=== PATIENT | female | born 2000 | race Two or more races ===

== ENCOUNTER 2020-06-12 18:21 | Inpatient (IN) ==
[2020-06-12 18:48] LABS: Appearance Urine Clear (Clear); Bilirubin Urine Negative (Negative); Blood Urine Negative (Negative); Color Urine Yellow; Glucose Urine UA Negative (Negative); Ketones Urine Negative (Negative); Leukocyte Esterase Urine Negative (Negative); Nitrite Urine Negative (Negative); Protein Urine Negative (Negative); Specific Gravity Urine 1.007 (1.000-1.030); Urobilinogen Urine Negative (Negative); pH Urine 8.5 (4.5-7.5)
[2020-06-12 19:09] LABS: Basophils # (auto) 0.01 K/uL (0-0.2); Basophils % (auto) 0.1 %; Eosinophils # (auto) 0.12 K/uL (0-0.5); Eosinophils % (auto) 1.6 %; Hematocrit (blood only) 40.2 % (37-47); Hemoglobin 13.8 g/dL (12.0-16.0); Immature Granulocytes # (auto) 0.01 K/uL (0.00-0.02); Immature Granulocytes % (auto) 0.1 %; Lymphocytes % (auto) 39.3 %; Mean Corpuscular Hemoglobin 30.3 pg (25-34); Mean Corpuscular Hgb Conc 34.3 g/dL (32-36); Mean Corpuscular Volume 88.4 fL (80-100); Mean Platelet Volume 9.4 fL (7.4-10.4); Monocytes # (auto) 0.65 K/uL (0.11-0.59); Monocytes % (auto) 8.5 %; Neutrophils # (auto) 3.85 K/uL (1.4-6.5); Neutrophils % (auto) 50.4 %; Platelet Count 215 K/uL (130-400); RDW Coefficient of Variation 12.7 % (11.5-14.5); RDW Standard Deviation 40.5 fL (36.4-46.3); Red Blood Count 4.55 M/uL (4.2-5.4); White Blood Count 7.64 K/uL (4.8-10.8)
[2020-06-12 19:23] LABS: Amphetamines+Metham, Urine Neg (Neg); Barbiturates, Urine Neg (Neg); Benzodiazepine, Urine Neg (Neg); Cocaine, Urine Neg (Neg); MDMA (Ecstacy), Urine Neg (Neg); Methadone, Urine Neg (Neg); Opiate, Urine Neg (Neg); Phencyclidine, Urine Neg (Neg)
[2020-06-12 19:26] LABS: Alanine Aminotransferase 16 U/L (12-78); Aspartate Aminotransferase 11 U/L (15-37); BUN Creatinine Ratio 10.6 (10-20); Blood Urea Nitrogen 6 mg/dl (7-18); Calcium 8.9 mg/dl (8.5-10.1); Carbon Dioxide 27 mmol/L (21-32); Chloride 108 mmol/L (98-107); Creatinine Clr Calc Pharmacy 136.3 ml/min; Est GFR (African American) > 150.0; Est GFR (Non-African American) 134.9; Glucose 71 mg/dl (70-99); Potassium 3.8 mmol/L (3.5-5.1); Sodium 139 mmol/L (136-145)
[2020-06-12 19:35] LABS: Acetaminophen < 2 ug/ml (10-30); Salicylate < 1.7 mg/dl (2.8-20)
[2020-06-12 19:37] LABS: Albumin Globulin Ratio 0.9 (0.9-2); Alkaline Phosphatase 71 U/L (45-117); Bilirubin,Total 0.5 mg/dl (0.2-1); Globulin 4.5 gm/dl (2.5-4.0); Total Protein 8.5 gm/dl (6.4-8.2)
--- NOTE | 2020-06-12 21:02 | Emergency Department Note ---
History of Present Illness General Chief complaint: Mental Health Evaluation Stated complaint: MENTAL HEALTH EVAL Source: patient and RN notes reviewed Mode of arrival: ambulatory Limitations: no limitations History of Present Illness Provider complaint: Suicidal ideation Maximum Pain Intensity: 0 Presents emergency department with complaints of suicidal thoughts. She states she has been having "significant issues" with her family and her fianc's family lately. These issues have been ongoing for the last 6 years however the patient states she has been having increased depression and suicidal thoughts for the last several days. The patient had thoughts of overdosing on pills last night. She has had suicidal attempts 3 times in the past. She has never been seen by psychiatrist nor has she had inpatient care. She denies likelihood of as she has a Nexplanon implant. He substance abuse and states she does drink alcohol occasionally. 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 and A total of 10 systems reviewed and were otherwise negative Physical Exam Vital Signs Vital Signs - 24 hr 06/12/20 18:23 Temperature 36.9 C Temperature Source Oral Pulse Rate 82 Respiratory Rate 16 Respiratory Effort / Characteristics Non-Labored Respiratory Depth Normal Blood Pressure 123/82 Blood Pressure Mean 95 Pulse Oximetry 99 Sepsis Recent Fever Within 48 Hours No Sepsis New/Unexplained Change in Mental Status No Sepsis Action Taken by Nursing No Action Required Vital signs reviewed. General: Well-appearing 19-year-old female, in no significant distress. HEENT: No scleral icterus, PERRLA, neck supple. Atraumatic. Cardiovascular: Regular rate and rhythm, no extra sounds. Pulmonary: Clear to auscultation bilaterally, normal work of breathing. Abdomen: Soft, nontender, nondistended, positive bowel sounds. Musculoskeletal: Atraumatic, no peripheral edema. Neurologic: Patient awake alert and oriented x 3 Psych: Positive SI with plan, negative HI Skin: Warm, dry, no rash Course Administered Medications Acetaminophen (Acetaminophen 325 Mg Tab) 650 mg PO Q4H PRN PRN Reason: Headache or Minor Fever Stop: 07/12/20 22:17 Last Admin: 06/13/20 18:51 Dose: 650 mg Documented by: [id number] Medical Decision Making Differential Diagnosis Differential diagnosis: Etiologies such as psychiatric disorder, infection, hypoglycemia, electrolyte abnormalities, cardiac sources, intracerebral event, toxicological process, neurologic disorder, as well as others were entertained. Medical Records Attestation: I reviewed the patient's medical records. Home Medications Current Medication List: was personally reviewed by me Laboratory Data Attestation: I reviewed the patient's lab results. Result diagrams: 06/12/20 18:45 06/12/20 18:45 Lab Results 06/12/20 06/12/20 06/12/20 Range/Units 18:34 18:34 18:34 WBC (4.8-10.8) K/uL RBC (4.2-5.4) M/uL Hgb (12.0-16.0) g/dL Hct (37-47) % MCV (80-100) fL MCH (25-34) pg MCHC (32-36) g/dL RDW Std Deviation (36.4-46.3) fL RDW Coeff of Addi (11.5-14.5) % Plt Count (130-400) K/uL MPV (7.4-10.4) fL Immature Gran % (Auto) % Neut % (Auto) % Lymph % (Auto) % Barnes % (Auto) % Eos % (Auto) % Baso % (Auto) % Neut # (Auto) (1.4-6.5) K/uL Lymph # (Auto) (1.2-3.4) K/uL Barnes # (Auto) (0.11-0.59) K/uL Eos # (Auto) (0-0.5) K/uL Baso # (Auto) (0-0.2) K/uL Immature Gran # (Auto) (0.00-0.02) K/uL Sodium (136-145) mmol/L Potassium (3.5-5.1) mmol/L Chloride (98-107) mmol/L Carbon Dioxide (21-32) mmol/L Anion Gap (3-11) BUN (7-18) mg/dl Creatinine (0.6-1.2) mg/dl Est Cr Clr Drug Dosing ml/min Est GFR ( Amer) Est GFR (Non-Af Amer) BUN/Creatinine Ratio (10-20) Glucose (70-99) mg/dl Calcium (8.5-10.1) mg/dl Total Bilirubin (0.2-1) mg/dl AST (15-37) U/L ALT (12-78) U/L Alkaline Phosphatase (45-117) U/L Total Protein (6.4-8.2) gm/dl Albumin (3.4-5.0) gm/dl Globulin (2.5-4.0) gm/dl Albumin/Globulin Ratio (0.9-2) TSH (0.300-4.500) uIu/ml Urine Color Yellow Urine Appearance Clear (Clear) Urine pH 8.5 H (4.5-7.5) Ur Specific [place] 1.007 (1.000-1.030) Urine Protein Negative (Negative) Urine Glucose (UA) Negative (Negative) Urine Ketones Negative (Negative) Urine Blood Negative (Negative) Urine Nitrite Negative (Negative) Urine Bilirubin Negative (Negative) Urine Urobilinogen Negative (Negative) Ur Leukocyte Esterase Negative (Negative) POC Ur Test NEG (NEG) Salicylates (2.8-20) mg/dl Urine Opiates Screen Neg (Neg) Ur Methadone, Qual Neg (Neg) Acetaminophen (10-30) ug/ml Urine Barbiturates Neg (Neg) Ur Phencyclidine (PCP) Neg (Neg) U Amphetamin/Meth Scrn Neg (Neg) MDMA (Ecstasy) Screen Neg (Neg) U Benzodiazepines Scrn Neg (Neg) Ur Cocaine Metabolite Neg (Neg) U Marijuana (THC) Screen Neg (Neg) Ethyl Alcohol mg/dL (0-3) mg/dl COVID-19 Eval Order SARS-CoV-2, RNA, NAAT (NEGATIVE) 06/12/20 06/12/20 06/12/20 Range/Units 18:45 18:45 18:45 WBC 7.64 (4.8-10.8) K/uL RBC 4.55 (4.2-5.4) M/uL Hgb 13.8 (12.0-16.0) g/dL Hct 40.2 (37-47) % MCV 88.4 (80-100) fL MCH 30.3 (25-34) pg MCHC 34.3 (32-36) g/dL RDW Std Deviation 40.5 (36.4-46.3) fL RDW Coeff of Addi 12.7 (11.5-14.5) % Plt Count 215 (130-400) K/uL MPV 9.4 (7.4-10.4) fL Immature Gran % (Auto) 0.1 % Neut % (Auto) 50.4 % Lymph % (Auto) 39.3 % Barnes % (Auto) 8.5 % Eos % (Auto) 1.6 % Baso % (Auto) 0.1 % Neut # (Auto) 3.85 (1.4-6.5) K/uL Lymph # (Auto) 3.00 (1.2-3.4) K/uL Barnes # (Auto) 0.65 H (0.11-0.59) K/uL Eos # (Auto) 0.12 (0-0.5) K/uL Baso # (Auto) 0.01 (0-0.2) K/uL Immature Gran # (Auto) 0.01 (0.00-0.02) K/uL Sodium 139 (136-145) mmol/L Potassium 3.8 (3.5-5.1) mmol/L Chloride 108 H (98-107) mmol/L Carbon Dioxide 27 (21-32) mmol/L Anion Gap 4.0 (3-11) BUN 6 L (7-18) mg/dl Creatinine 0.54 L (0.6-1.2) mg/dl Est Cr Clr Drug Dosing 136.3 ml/min Est GFR ( Amer) > 150.0 Est GFR (Non-Af Amer) 134.9 BUN/Creatinine Ratio 10.6 (10-20) Glucose 71 (70-99) mg/dl Calcium 8.9 (8.5-10.1) mg/dl Total Bilirubin 0.5 (0.2-1) mg/dl AST 11 L (15-37) U/L ALT 16 (12-78) U/L Alkaline Phosphatase 71 (45-117) U/L Total Protein 8.5 H (6.4-8.2) gm/dl Albumin 4.0 (3.4-5.0) gm/dl Globulin 4.5 H (2.5-4.0) gm/dl Albumin/Globulin Ratio 0.9 (0.9-2) TSH 1.100 (0.300-4.500) uIu/ml Urine Color Urine Appearance (Clear) Urine pH (4.5-7.5) Ur Specific [place] (1.000-1.030) Urine Protein (Negative) Urine Glucose (UA) (Negative) Urine Ketones (Negative) Urine Blood (Negative) Urine Nitrite (Negative) Urine Bilirubin (Negative) Urine Urobilinogen (Negative) Ur Leukocyte Esterase (Negative) POC Ur Test (NEG) Salicylates < 1.7 L (2.8-20) mg/dl Urine Opiates Screen (Neg) Ur Methadone, Qual (Neg) Acetaminophen < 2 L (10-30) ug/ml Urine Barbiturates (Neg) Ur Phencyclidine (PCP) (Neg) U Amphetamin/Meth Scrn (Neg) MDMA (Ecstasy) Screen (Neg) U Benzodiazepines Scrn (Neg) Ur Cocaine Metabolite (Neg) U Marijuana (THC) Screen (Neg) Ethyl Alcohol mg/dL (0-3) mg/dl COVID-19 Eval Order SARS-CoV-2, RNA, NAAT (NEGATIVE) 06/12/20 06/12/20 06/12/20 Range/Units 18:45 20:50 20:50 WBC (4.8-10.8) K/uL RBC (4.2-5.4) M/uL Hgb (12.0-16.0) g/dL Hct (37-47) % MCV (80-100) fL MCH (25-34) pg MCHC (32-36) g/dL RDW Std Deviation (36.4-46.3) fL RDW Coeff of Addi (11.5-14.5) % Plt Count (130-400) K/uL MPV (7.4-10.4) fL Immature Gran % (Auto) % Neut % (Auto) % Lymph % (Auto) % Barnes % (Auto) % Eos % (Auto) % Baso % (Auto) % Neut # (Auto) (1.4-6.5) K/uL Lymph # (Auto) (1.2-3.4) K/uL Barnes # (Auto) (0.11-0.59) K/uL Eos # (Auto) (0-0.5) K/uL Baso # (Auto) (0-0.2) K/uL Immature Gran # (Auto) (0.00-0.02) K/uL Sodium (136-145) mmol/L Potassium (3.5-5.1) mmol/L Chloride (98-107) mmol/L Carbon Dioxide (21-32) mmol/L Anion Gap (3-11) BUN (7-18) mg/dl Creatinine (0.6-1.2) mg/dl Est Cr Clr Drug Dosing ml/min Est GFR ( Amer) Est GFR (Non-Af Amer) BUN/Creatinine Ratio (10-20) Glucose (70-99) mg/dl Calcium (8.5-10.1) mg/dl Total Bilirubin (0.2-1) mg/dl AST (15-37) U/L ALT (12-78) U/L Alkaline Phosphatase (45-117) U/L Total Protein (6.4-8.2) gm/dl Albumin (3.4-5.0) gm/dl Globulin (2.5-4.0) gm/dl Albumin/Globulin Ratio (0.9-2) TSH (0.300-4.500) uIu/ml Urine Color Urine Appearance (Clear) Urine pH (4.5-7.5) Ur Specific [place] (1.000-1.030) Urine Protein (Negative) Urine Glucose (UA) (Negative) Urine Ketones (Negative) Urine Blood (Negative) Urine Nitrite (Negative) Urine Bilirubin (Negative) Urine Urobilinogen (Negative) Ur Leukocyte Esterase (Negative) POC Ur Test (NEG) Salicylates (2.8-20) mg/dl Urine Opiates Screen (Neg) Ur Methadone, Qual (Neg) Acetaminophen (10-30) ug/ml Urine Barbiturates (Neg) Ur Phencyclidine (PCP) (Neg) U Amphetamin/Meth Scrn (Neg) MDMA (Ecstasy) Screen (Neg) U Benzodiazepines Scrn (Neg) Ur Cocaine Metabolite (Neg) U Marijuana (THC) Screen (Neg) Ethyl Alcohol mg/dL < 3.0 (0-3) mg/dl COVID-19 Eval Order Covid19 [facility] SARS-CoV-2, RNA, NAAT NEGATIVE (NEGATIVE) Imaging Data Attestation: I personally reviewed and interpreted this imaging study as follows: Prescription Drug Monitoring [place] Drug Monitoring Program reviewed and no issues identified Blood Pressure Blood Pressure Findings: Normal blood pressure Blood Pressure Disposition: did not require urgent referral MDM Narrative This patient was evaluated and appeared to be in no significant distress. Patient was medically cleared and referred to the mental health case folder for psychiatric assessment. Patient is felt to warrant inpatient psychiatric care due to suicidal ideation with plans to overdose on pills. She has had 3 prior suicide attempts. Patient was referred to [facility] and accepted on a voluntary basis. Impression & Plan Suicidal ideations, Depression Discharge Plan Visit Data Chief Complaint: Mental Health Evaluation Stated Complaint: MENTAL HEALTH EVAL ED Provider: Roxanne Medrano Discharge Problem: Suicidal ideations, Depression Patient Disposition: Admitted As Inpatient Discharge Instructions Interventions: ED Discharge Assessment Last Done: 06/12/20 23:40 Discharge Problem: Depression Qualifiers: Depression Type: unspecified Qualified Code(s): F32.9 - Major depressive disorder, single episode, unspecified
[2020-06-12] MEDS ORDERED: SODIUM CHLORIDE 0.65% NA SOLN 45 ML (OCEAN) PRN (22:18)
[2020-06-12] MEDS ORDERED: MAGNESIUM HYDROXIDE SUSP 30 ML UDC PO PRN (22:18)
[2020-06-12] MEDS ORDERED: hydrOXYzine HCl 25 MG TAB PO PRN ×2 (22:18)
[2020-06-12] MEDS ORDERED: BISMUTH SUBSALICYLATE LIQD 236 ML PO PRN (22:18)
[2020-06-12] MEDS ORDERED: ALUMINUM/MAGNESIUM SUSP 30 ML UDC PO PRN (22:18)
[2020-06-12] MEDS ORDERED: ACETAMINOPHEN 325 MG TAB PO PRN (22:18)
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
--- NOTE | 2020-06-14 09:12 | Psychiatric Progress Note ---
Date of Service June 14, 2020 Impression / Recommendations Impression 19-year-old female admitted voluntarily after presenting to the ED with worsening mood and anxiety and recent onset of suicidal ideation in context of multiple relationship stressors. A trial of an antidepressant has been discussed, but for now she wants to avoid medications to continue with therapy at [facility]. She has a family meeting with her fited, whom she lives with, today, and we will coordinate with [employer] through [facility]. Inpatient psychiatric hospitalization is medically necessary at this time due to high risk of recurrence of SI and risk of suicide if discharged prematurely. (1) Suicidal ideations: 06/13 - Admitted to a locked inpatient behavioral health unit, on q15 minute safety checks - Encourage medication initiation/adjustments as indicated - Encourage participation in group and recreational therapies - Gather collateral information from outpatient providers - Suggest family meeting to involve outpatient supports in safety planning - Arrange appropriate aftercare 06/14 -Patient feels safe here, will address stressors in her family meeting with her fited today. Encouraged her to work on her discharge safety plan and share that with her fited. (2) Depression: 06/13 - Pt provided with education on diagnosis. Suggested initiation of an SSRI to target depressive symptoms. Due to verbalized concerns about risk of weight gain, we specifically discussed trial of fluoxetine. Pt provided with handouts to review, as she is not yet wanting to commit to initiating medication - Will encourage attendance of group programming and development of healthy and effective coping skills - Encourage family meeting with outpatient supports - likely fijanet - Engage with [facility] - Refer for appropriate aftercare services 06/14 -again reviewed treatment recommendations including therapy and the option of antidepressant medication. The patient asked multiple appropriate questions, again reviewed the side effects commonly seen with fluoxetine, attempted to reassure that these are generally well-tolerated medications, and that adjustments can be made if she does experience side effects, however she would like to avoid medications and try to manage symptoms with therapy alone for now, but agreed to reconsider a trial of an SSRI if symptoms are not improving. (3) Generalized anxiety disorder: 06/13 - Same as above, patient is interested in reviewing additional information on fluoxetine before starting the medication - Encourage development of healthy and effective coping strategies Risk Factors Assessment Male: No : No Do You Have Access To A Gun?: No Health Problems: No Mental Health Diagnoses: Yes Substance Use Disorders: No Previous Attempt: Yes Previous Psychiatric Hospitalization: No Smoker: No Protective Factors Assessment Restorationist Beliefs: No : No Responsible for Young Children: No Employed: No Stable Relationships: Yes Supportive Family: No Interval History Identifying Information PRESTON SONI is a 19-year-old F who currently lives in [place] with her fiance. Pt has a history of diagnosis for adjustment disorder and had started seeing a counselor this semester, and was admitted on 06/12/20 22:19 on a 201 voluntary commitment for worsening depression and anxiety and suicidal ideation with plan to overdose on medications. Chief Complaint "Didn't sleep real well, had nightmares". Review of Systems Sleep Information Total Hours of Sleep: 5.5 Sleep Comments: pt on q-15 minute checks Meal Information Percent Meal Consumed - Breakfast: 70 Percent Meal Consumed - Lunch: 75 Percent Meal Consumed - Dinner: 100 Subjective Subjective Patient was seen & assessed and interval progress reviewed. Staff report she attended all groups with good participation and insight, was able to offer support to others, and spoke about feeling rejected by her family when she told them she was atheist and would not practice Mandaeism. She also discussed that she is engaged to a white male, and her parents are not aware of that. She has a family meeting with the manager social responsibility and her fianc this afternoon. On my assessment, she reports mood is "ok," was feeling better on the unit yesterday as she got "comfortable with my environment," but worsened in the evening when she talked to her fiance on the phone and they got into an argument about his family. She feels guilty about it now, as he stood up for her when other family members "disrespected me." She feels his mother should apologize to her, while he thinks the patient should just not talk to his mother, and then see if she changes her behavior. She feels she is easily angered recently ad loses her temper quickly, which she'd like to work on. She is able to identify that her main stressor is her own family, and she can take her frustrations out on his family. She denies SI and feels safe here. She read the patient hand out about fluoxetine and doesn't want to take medication as "there's so many side effects." Again reviewed details about antidepressant medication, and she would like to work on her issues in therapy. She has several goals for her meeting with her fiance today. Physical Exam Psychiatric Orientation: alert and cooperative Apperance: appropriately dressed, appropriately groomed and appeared stated age head shaved, multiple piercings, dressed in leggings and a sweatshirt Eye Contact: + fair eye contact Motor Behavior: steady gait and station and no abnormal motor movements Speech: normal rate/rhythm/volume of speech Affect: euthymic affect and mood congruent with affect "ok." Thought Process: goal directed thought process and linear/logical thought process Thought Content: reality based without delusions Suicidal Thoughts: denies suicidal thoughts Homicidal Thoughts: denies homicidal thoughts Hallucinations: no auditory hallucinations Cognition: recent memory grossly intact, attention grossly intact and language grossly intact Estimated Intelligence: consistent with education level Insight: + fair insight Judgement: + fair judgement Vital Signs (Past 24 Hours) Last Vital Signs Temp 36.8 C 06/14/20 06:44 Pulse 95 H 06/14/20 06:44 Resp 16 06/14/20 06:44 BP 97/59 L 06/14/20 06:44 Pulse Ox 100 06/13/20 00:13 Results & Data ([facility]) Current Inpatient Medications Current Inpatient Medications: Current Inpatient Medications Acetaminophen (Acetaminophen 325 Mg Tab) 650 mg PO Q4H PRN PRN Reason: Headache or Minor Fever Stop: 07/12/20 22:17 Last Admin: 06/13/20 18:51 Dose: 650 mg Documented by: Al Hydrox/Mg Hydrox/Simethicone (Aluminum/Magnesium Susp 30 Ml Udc) 30 ml PO Q4H PRN PRN Reason: GI Upset Stop: 07/12/20 22:17 Bismuth Subsalicylate (Bismuth Subsalicylate Liqd 236 Ml) 15 ml PO PRN PRN PRN Reason: Loose Stool Stop: 07/12/20 22:17 Hydroxyzine HCl (Hydroxyzine Hcl 25 Mg Tab) 50 mg PO HSZ PRN PRN Reason: Insomnia Stop: 07/12/20 22:17 Hydroxyzine HCl (Hydroxyzine Hcl 25 Mg Tab) 25 mg PO Q4H PRN PRN Reason: Anxiety Stop: 07/12/20 22:17 Magnesium Hydroxide (Magnesium Hydroxide Susp 30 Ml Udc) 30 ml PO DAILY PRN PRN Reason: Constipation Stop: 07/12/20 22:17 Sodium Chloride (Sodium Chloride 0.65% Na Soln 45 Ml ([place])) 1 - 2 sprays NA PRN PRN PRN Reason: Nasal Dryness/Congestion Stop: 07/12/20 22:17 Mental Health & Subst Abuse Tx Therapist Name of Therapist: Cezar Geronimo @ [facility] Date of Therapist Appointment: 06/18/20 (1) Depression Depression Type: unspecified Qualified Code(s): F32.9 - Major depressive disorder, single episode, unspecified
[2020-06-15] MEDS ORDERED: MELATONIN 3 MG TAB PO PRN (10:59)
--- NOTE | 2020-06-15 11:06 | Psychiatric Progress Note ---
Date of Service June 15, 2020 Impression / Recommendations Impression 19-year-old female admitted voluntarily after presenting to the ED with worsening mood and anxiety and recent onset of suicidal ideation in context of multiple relationship stressors. A trial of an antidepressant has been discussed, and patient initially reported she wants to avoid medications. After a few days of education on SSRIs and a support meeting with her fiance, patient has decided to pursue a trial of fluoxetine. We were informed medications will be managed by [facility] and patient will continue with therapy at [facility] as well. Care has also been coordinated with [employer] through [facility]. Inpatient psychiatric hospitalization is medically necessary at this time due to high risk of recurrence of SI and risk of suicide if discharged prematurely. (1) Suicidal ideations: 06/13 - Admitted to a locked inpatient behavioral health unit, on q15 minute safety checks - Encourage medication initiation/adjustments as indicated - Encourage participation in group and recreational therapies - Gather collateral information from outpatient providers - Suggest family meeting to involve outpatient supports in safety planning - Arrange appropriate aftercare 06/14 -Patient feels safe here, will address stressors in her family meeting with her fianc today. Encouraged her to work on her discharge safety plan and share that with her fianc. 06/15 - Pt denies SI today, but admits to increased anxiety related to nightmares last evening - Continue to encourage participation in group programming - Safety plan discussed with fiance during support meeting yesterday (2) Depression: 06/13 - Pt provided with education on diagnosis. Suggested initiation of an SSRI to target depressive symptoms. Due to verbalized concerns about risk of weight gain, we specifically discussed trial of fluoxetine. Pt provided with handouts to review, as she is not yet wanting to commit to initiating medication - Will encourage attendance of group programming and development of healthy and effective coping skills - Encourage family meeting with outpatient supports - likely fiance - Engage with [facility] - Refer for appropriate aftercare services 06/14 -again reviewed treatment recommendations including therapy and the option of antidepressant medication. The patient asked multiple appropriate questions, again reviewed the side effects commonly seen with fluoxetine, attempted to reassure that these are generally well-tolerated medications, and that adjustments can be made if she does experience side effects, however she would like to avoid medications and try to manage symptoms with therapy alone for now, but agreed to reconsider a trial of an SSRI if symptoms are not improving. 06/15 - Pt appears to be benefitting from treatment - admits family meeting with fijanet yesterday was stressful, but necessary. - Pt reports she is now willing to initiate fluoxetine, based on discussions with staff and conversation during the family meeting. Pt agreeable with initiating 20mg of fluoxetine today, and continuing scheduled dose each morning. Risks, benefits, and potential side effects were reviewed again, specifically including Black Box Warning regarding potential for increased suicidality in children and adolescents. - Pt has been in contact with [employer] regarding missed schooling. - Pt will continue to be seen at [facility], with reports she will also be able to receive medication management there as well. We did discuss sending prescriptions to [facility] pharmacy, as fluoxetine is on the $4/$10 list. (3) Generalized anxiety disorder: 06/13 - Same as above, patient is interested in reviewing additional information on fluoxetine before starting the medication - Encourage development of healthy and effective coping strategies 06/15 - Pt agreed to initiation of fluoxetine as discussed above - Reviewed coping strategies and ways to handle Risk Factors Assessment Male: No : No Do You Have Access To A Gun?: No Health Problems: No Mental Health Diagnoses: Yes Substance Use Disorders: No Previous Attempt: Yes Previous Psychiatric Hospitalization: No Smoker: No Protective Factors Assessment Taoist Beliefs: No : No Responsible for Young Children: No Employed: No Stable Relationships: Yes Supportive Family: No Interval History Identifying Information PRESTON SONI is a 19-year-old F who currently lives in [place] with her fijanet. Pt has a history of diagnosis for adjustment disorder and had started seeing a counselor this semester, and was admitted on 06/12/20 22:19 on a 201 voluntary commitment for worsening depression and anxiety and suicidal ideation with plan to overdose on medications. Chief Complaint "I didn't sleep well last night due to nightmares." Review of Systems Notes Constitutional: reports poor sleep last evening, several nightmares Cardiovascular: denied Respiratory: denied Gastrointestinal: denied Neurological: denied Psychiatric: denies symptoms other than stated above Total of at least 10 systems reviewed, pertinent positives as above and in HPI. Sleep Information Total Hours of Sleep: 6.5 Sleep Comments: pt on q-15 minute checks Meal Information Percent Meal Consumed - Breakfast: 100 Percent Meal Consumed - Lunch: 100 Percent Meal Consumed - Dinner: 100 Subjective Subjective Patient was seen & assessed and interval progress reviewed with treatment team. Staff report the patient has been participating in group programming and appears to be benefitting from treatment. She participated in a support meeting with her fiance yesterday, which covered aspects of patient's distorted thinking and ways to better cope with outpatient stressors. Pt was seen today to assess progress since admission. Pt states "I didn't sleep well last night due to nightmares." Pt reports her dreams last evening were vivid, and the theme was reflecting a very stressful day she had as child when she had a dream her father had and she was not able to get a hold of him during the day to make sure he was ok. Pt admits "I don't normally dream unless there's a lot of stress going on." Pt states that although her treatment has been beneficial, it has also been a bit overwhelming. In speaking of her support meeting yesterday, the patient admits "the things I was told were pretty blunt, but important for me to hear." Pt states she was able to reflect on her belief that her perception is "what is right." We continued conversation about cognitive distortions and patient was directed to her work-book and counselors to follow-up on this topic. Pt also shares the thought that she needs "anger management." She admits that "insignificant things" have been "making me really angry." We did discuss that anxiety and depression can lead to this, but also discussed ways to work through this. Pt admits the biggest concern is how she and her fiance communicate anger. She admits that she tends to demand immediate conversation and resolution, while her fiance is more avoidant. We discussed ways to work toward a middle-ground when it comes to arguments. Pt was receptive to the conversation and suggestions and is hopeful to speak with her fiance about implementing some of them. Pt reports that she is willing for medications, after some consideration. She was again provided with education of fluoxetine and was agreeable with beginning the medication today. Pt was agreeable with continuing inpatient treatment in order to start the medication. Pt denies SI, but states she is hoping to continue to develop some coping skills in some additional groups. Pt denied other needs or concerns at this time. Physical Exam Psychiatric Orientation: alert, oriented x 3 and cooperative Apperance: appropriately dressed, appropriately groomed and appeared stated age Eye Contact: good eye contact Motor Behavior: steady gait and station and no abnormal motor movements Speech: normal rate/rhythm/volume of speech Affect: euthymic affect and mood congruent with affect Mood: + anxious mood (related to nightmares last evening) Thought Process: goal directed thought process and clear/coherent thought process Thought Content: + cognitive distortions (reporting better ability to recognize); no hopelessness and no worthlessness Suicidal Thoughts: denies suicidal thoughts Homicidal Thoughts: denies homicidal thoughts Hallucinations: no auditory hallucinations and no visual hallucinations Cognition: recent memory grossly intact, attention grossly intact and language grossly intact Estimated Intelligence: consistent with education level Insight: + fair insight Judgement: + fair judgement Vital Signs (Past 24 Hours) Last Vital Signs Temp 36.6 C 06/15/20 06:32 Pulse 76 06/15/20 06:32 Resp 17 06/15/20 06:32 BP 106/64 06/15/20 06:33 Pulse Ox 100 06/13/20 00:13 Results & Data ([facility]) Current Inpatient Medications Current Inpatient Medications: Current Inpatient Medications Acetaminophen (Acetaminophen 325 Mg Tab) 650 mg PO Q4H PRN PRN Reason: Headache or Minor Fever Stop: 07/12/20 22:17 Last Admin: 06/13/20 18:51 Dose: 650 mg Documented by: Al Hydrox/Mg Hydrox/Simethicone (Aluminum/Magnesium Susp 30 Ml Udc) 30 ml PO Q4H PRN PRN Reason: GI Upset Stop: 07/12/20 22:17 Bismuth Subsalicylate (Bismuth Subsalicylate Liqd 236 Ml) 15 ml PO PRN PRN PRN Reason: Loose Stool Stop: 07/12/20 22:17 Fluoxetine HCl (Fluoxetine Hcl 20 Mg Cap) 20 mg PO QAM ELLI Stop: 07/15/20 10:59 Hydroxyzine HCl (Hydroxyzine Hcl 25 Mg Tab) 50 mg PO HSZ PRN PRN Reason: Insomnia Stop: 07/12/20 22:17 Hydroxyzine HCl (Hydroxyzine Hcl 25 Mg Tab) 25 mg PO Q4H PRN PRN Reason: Anxiety Stop: 07/12/20 22:17 Magnesium Hydroxide (Magnesium Hydroxide Susp 30 Ml Udc) 30 ml PO DAILY PRN PRN Reason: Constipation Stop: 07/12/20 22:17 Melatonin (Melatonin 3 Mg Tab) 6 mg PO HS PRN PRN Reason: Sleep Stop: 07/15/20 10:58 Sodium Chloride (Sodium Chloride 0.65% Na Soln 45 Ml ([place])) 1 - 2 sprays NA PRN PRN PRN Reason: Nasal Dryness/Congestion Stop: 07/12/20 22:17 Mental Health & Subst Abuse Tx Therapist Name of Therapist: Cezar Juanpablo @ [facility] Date of Therapist Appointment: 06/20/20 Time of Therapist Appointment: 1pm Marker Machine Name of Marker Machine: [facility] Phone Number for Marker Machine: [phone] Date of Appointment with Marker Machine: 06/18/20 Time of Appointment with Marker Machine: 2pm Case Management Appointment Comment: Megan will call you Post Discharge Appointments Primary Care Physician Name Of Family Doctor: [facility] Primary Care Provider Appointment Comment: As needed, [facility] [place] (1) Depression Depression Type: unspecified Qualified Code(s): F32.9 - Major depressive disorder, single episode, unspecified
[2020-06-15] MEDS: FLUoxetine HCL 20 MG CAP PO SCH (13:29)
[2020-06-16] MEDS: FLUoxetine HCL 20 MG CAP PO SCH (09:20)
--- NOTE | 2020-06-16 11:21 | Discharge Summary ---
Date of Service June 16, 2020 History of Present Illness per admitting provider: Ac Pierson is a 19-year-old female admitted voluntarily for inpatient psychiatric treatment on 06/12/2020 after presenting to the ED with worsening depression and anxiety, with episodes of suicidal ideation with plan to overdose on medications. Pt states she has a history of 3 suicide attempts by overdose, the most recent being in 2017. She had been expressing increased concern to her therapist through [facility] and a safety plan was developed. Although the safety plan has been successful at preventing any self- harm attempts, the patient no longer feels she is able to contract for safety outside of the hospital setting. Pt reports she has noticed the effects her mood and suicidal ideaiton have been having on her fiance, and wanted to get treatment to help them both. Pt admits to significant situational stressors - primarily discord within her family. Pt states her family moved to the [facility] from [place] ~6 years ago, with her parents shortly after. Pt states both parents have si nce re- and are living [place] the [place]. Pt states she often feels she is still expected to be the "mother-figure" for her 4 younger sisters, despite patient also attempting to distance herself from the stress of the family interactions. Pt reports having felt very close to her fiance's family, but states this changed recently when the fiance's sister moved back home. Pt describes the relationship as saying "It's like if your feeling dizzy, you look at a specific point on the wall to focus in on. That's how his family was for me, but now I feel like that's shaking too." In addition to the above concerns, the patient states she is also now struggling academically, which has been difficult. Pt reports depressive symptoms of low mood, anhedonia, poor concentration and memory concerns, reduced appetite, poor sleep, hopelessness, and episodes of suicidal ideation. She also admits to numerous symptoms consistent with generalized anxiety disorder. Pt states she has difficulty expressing her feelings, as her "culture is not one for expressing mental health." She states that her father had not taken her suicide attempts seriously, and is responding similarly to the patient's sister who has recently been verbalizing SI as well. Pt is open to discussing antidepressant medications, but is not yet sure that she will be willing to start one. She denies present SI, but is concerned as she felt "like a monster was controlling my body" the day prior to admission, and is worried she may not be able to prevent herself from acting on suicidal thoughts should they recur. Physical Exam Mental Examination See admission H&P and DOD assessment. Vital Signs (Past 24 Hours) Last Vital Signs Temp 36.7 C 06/16/20 07:48 Pulse 72 06/16/20 07:48 Resp 17 06/16/20 07:48 BP 92/48 L 06/16/20 07:48 Pulse Ox 100 06/16/20 07:48 Principal Diagnosis unspecified depressive disorder Psychiatric Data see daily stay summary. Patient's safety was maintained, started on Prozac 06/15/2020. Able to verbalize safety plan and is stable for discharge to outpatient level of care on 06/16. Has f/u with [facility]. Meds sent to [facility] pharmacy as paying out of pocket. Day of Discharge Assessment alert, cooperative, normal speech, thoughts organized. She consistently denies SI/HI/cummins. Her mood is "improved" and her affect is broad. She is expressing good insight into her ongoing need for treatment. Transition of Care Transition Of Care Record: was reviewed with the patient Advance Directives Advance Directives Information Provided: Yes Advance Directives: No Mental Health Advance Directive: No Advance Directives on File: No Living Will: No Power of Quality Rn: No Advance Directives Reason:: Declines as Mental Health Visit. Risk Factors Assessment Male: No : No Do You Have Access To A Gun?: No Health Problems: No Mental Health Diagnoses: Yes Substance Use Disorders: No Previous Attempt: Yes Previous Psychiatric Hospitalization: No Smoker: No Protective Factors Assessment Hindu Beliefs: No : No Responsible for Young Children: No Employed: No Stable Relationships: Yes Supportive Family: No Tobacco Cessation at Discharge Tobacco Cessation Medication Prescribed at Discharge: Not Applicable/Non-Smoker Total Time Total Time Spent: Greater Than 30 Minutes Discharge Data Lab Results 06/12/20 06/12/20 06/12/20 18:34 18:34 18:34 WBC RBC Hgb Hct MCV MCH MCHC RDW Std Deviation RDW Coeff of Addi Plt Count MPV Immature Gran % (Auto) Neut % (Auto) Lymph % (Auto) Cata[place]oula % (Auto) Eos % (Auto) Baso % (Auto) Neut # (Auto) Lymph # (Auto) Cata[place]oula # (Auto) Eos # (Auto) Baso # (Auto) Immature Gran # (Auto) Sodium Potassium Chloride Carbon Dioxide Anion Gap BUN Creatinine Est Cr Clr Drug Dosing Est GFR ( Amer) Est GFR (Non-Af Amer) BUN/Creatinine Ratio Glucose Calcium Total Bilirubin AST ALT Alkaline Phosphatase Total Protein Albumin Globulin Albumin/Globulin Ratio TSH Urine Color Yellow Urine Appearance Clear Urine pH 8.5 H Ur Specific [place] 1.007 Urine Protein Negative Urine Glucose (UA) Negative Urine Ketones Negative Urine Blood Negative Urine Nitrite Negative Urine Bilirubin Negative Urine Urobilinogen Negative Ur Leukocyte Esterase Negative POC Ur Test NEG Salicylates Urine Opiates Screen Neg Ur Methadone, Qual Neg Acetaminophen Urine Barbiturates Neg Ur Phencyclidine (PCP) Neg U Amphetamin/Meth Scrn Neg MDMA (Ecstasy) Screen Neg U Benzodiazepines Scrn Neg Ur Cocaine Metabolite Neg U Marijuana (THC) Screen Neg Ethyl Alcohol mg/dL COVID-19 Eval Order SARS-CoV-2, RNA, NAAT 06/12/20 06/12/20 06/12/20 18:45 18:45 18:45 WBC 7.64 RBC 4.55 Hgb 13.8 Hct 40.2 MCV 88.4 MCH 30.3 MCHC 34.3 RDW Std Deviation 40.5 RDW Coeff of Addi 12.7 Plt Count 215 MPV 9.4 Immature Gran % (Auto) 0.1 Neut % (Auto) 50.4 Lymph % (Auto) 39.3 [place]oula % (Auto) 8.5 Eos % (Auto) 1.6 Baso % (Auto) 0.1 Neut # (Auto) 3.85 Lymph # (Auto) 3.00 [place]oula # (Auto) 0.65 H Eos # (Auto) 0.12 Baso # (Auto) 0.01 Immature Gran # (Auto) 0.01 Sodium 139 Potassium 3.8 Chloride 108 H Carbon Dioxide 27 Anion Gap 4.0 BUN 6 L Creatinine 0.54 L Est Cr Clr Drug Dosing 136.3 Est GFR ( Amer) > 150.0 Est GFR (Non-Af Amer) 134.9 BUN/Creatinine Ratio 10.6 Glucose 71 Calcium 8.9 Total Bilirubin 0.5 AST 11 L ALT 16 Alkaline Phosphatase 71 Total Protein 8.5 H Albumin 4.0 Globulin 4.5 H Albumin/Globulin Ratio 0.9 TSH 1.100 Urine Color Urine Appearance Urine pH Ur Specific [place] Urine Protein Urine Glucose (UA) Urine Ketones Urine Blood Urine Nitrite Urine Bilirubin Urine Urobilinogen Ur Leukocyte Esterase POC Ur Test Salicylates < 1.7 L Urine Opiates Screen Ur Methadone, Qual Acetaminophen < 2 L Urine Barbiturates Ur Phencyclidine (PCP) U Amphetamin/Meth Scrn MDMA (Ecstasy) Screen U Benzodiazepines Scrn Ur Cocaine Metabolite U Marijuana (THC) Screen Ethyl Alcohol mg/dL COVID-19 Eval Order SARS-CoV-2, RNA, NAAT 06/12/20 06/12/20 06/12/20 18:45 20:50 20:50 WBC RBC Hgb Hct MCV MCH MCHC RDW Std Deviation RDW Coeff of Addi Plt Count MPV Immature Gran % (Auto) Neut % (Auto) Lymph % (Auto) [place]oula % (Auto) Eos % (Auto) Baso % (Auto) Neut # (Auto) Lymph # (Auto) [place]oula # (Auto) Eos # (Auto) Baso # (Auto) Immature Gran # (Auto) Sodium Potassium Chloride Carbon Dioxide Anion Gap BUN Creatinine Est Cr Clr Drug Dosing Est GFR ( Amer) Est GFR (Non-Af Amer) BUN/Creatinine Ratio Glucose Calcium Total Bilirubin AST ALT Alkaline Phosphatase Total Protein Albumin Globulin Albumin/Globulin Ratio TSH Urine Color Urine Appearance Urine pH Ur Specific [place] Urine Protein Urine Glucose (UA) Urine Ketones Urine Blood Urine Nitrite Urine Bilirubin Urine Urobilinogen Ur Leukocyte Esterase POC Ur Test Salicylates Urine Opiates Screen Ur Methadone, Qual Acetaminophen Urine Barbiturates Ur Phencyclidine (PCP) U Amphetamin/Meth Scrn MDMA (Ecstasy) Screen U Benzodiazepines Scrn Ur Cocaine Metabolite U Marijuana (THC) Screen Ethyl Alcohol mg/dL < 3.0 COVID-19 Eval [facility], RNA, NAAT NEGATIVE Hospital Course (1) Suicidal ideations: 06/13 - Admitted to a locked inpatient behavioral health unit, on q15 minute safety checks - Encourage medication initiation/adjustments as indicated - Encourage participation in group and recreational therapies - Gather collateral information from outpatient providers - Suggest family meeting to involve outpatient supports in safety planning - Arrange appropriate aftercare 06/14 -Patient feels safe here, will address stressors in her family meeting with her fianc today. Encouraged her to work on her discharge safety plan and share that with her carmita. 06/15 - Pt denies SI today, but admits to increased anxiety related to nightmares last evening - Continue to encourage participation in group programming - Safety plan discussed with mauricio during support meeting yesterday (2) Depression: 06/13 - Pt provided with education on diagnosis. Suggested initiation of an SSRI to target depressive symptoms. Due to verbalized concerns about risk of weight gain, we specifically discussed trial of fluoxetine. Pt provided with handouts to review, as she is not yet wanting to commit to initiating medication - Will encourage attendance of group programming and development of healthy and effective coping skills - Encourage family meeting with outpatient supports - likely mauricio - Engage with [facility] - Refer for appropriate aftercare services 06/14 -again reviewed treatment recommendations including therapy and the option of antidepressant medication. The patient asked multiple appropriate questions, again reviewed the side effects commonly seen with fluoxetine, attempted to reassure that these are generally well-tolerated medications, and that adjustments can be made if she does experience side effects, however she would like to avoid medications and try to manage symptoms with therapy alone for now, but agreed to reconsider a trial of an SSRI if symptoms are not improving. 06/15 - Pt appears to be benefitting from treatment - admits family meeting with mauricio yesterday was stressful, but necessary. - Pt reports she is now willing to initiate fluoxetine, based on discussions with staff and conversation during the family meeting. Pt agreeable with initiating 20mg of fluoxetine today, and continuing scheduled dose each morning. Risks, benefits, and potential side effects were reviewed again, specifically including Black Box Warning regarding potential for increased suicidality in children and adolescents. - Pt has been in contact with [employer] regarding missed schooling. - Pt will continue to be seen at [facility], with reports she will also be able to receive medication management there as well. We did discuss sending prescriptions to [facility], as fluoxetine is on the $4/$10 list. (3) Generalized anxiety disorder: 06/13 - Same as above, patient is interested in reviewing additional information on fluoxetine before starting the medication - Encourage development of healthy and effective coping strategies 06/15 - Pt agreed to initiation of fluoxetine as discussed above - Reviewed coping strategies and ways to handle Mental Health & Subst Abuse Tx Therapist Name of Therapist: [facility] - Cezar Geronimo Therapist's Phone Number: [phone] Date of Therapist Appointment: 06/20/20 Time of Therapist Appointment: 1:00 pm Therapy Appointment Comment: [facility] Therapist Release of Information: Obtained, Reviewed and Signed Inspector Advanced Composite Name of Inspector Advanced Composite: [facility] - Megan Arellano Phone Number for Inspector Advanced Composite: [phone] Date of Appointment with Inspector Advanced Composite: 06/18/20 Time of Appointment with Inspector Advanced Composite: 2:00 pm Case Management Appointment Comment: Megan will call you Post Discharge Appointments Primary Care Physician Name Of Family Doctor: [facility] Primary [facility] Time of Appointment with PCP: Follow up as needed Provider Appointment Comment: [facility], [facility] Home Health Services:: None Smoking Cessation Counseling Tobacco Cessation Medication Prescribed at Discharge: Not Applicable/Non-Smoker Contact Information Discharge Discharge [address]: [address] [place] [id number] Discharge Plan Discharge Items Patient Disposition: Home - Self-Care Reason For Visit: DEPRESSION NOS Discharge Diagnosis: unspecified depressive disorder Activity: Resume your previous activity Non-emergency contact: Primary Care Provider, Psychiatrist and Therapist Call non-emergency contact if: you have any medication questions Follow-up/Referrals: [facility] [Primary Care Provider] - Diet: Lactose Intolerant Diet Comment: gluten sensitive Addtl Attending Provider Instructions: SPECIAL CARE INSTRUCTIONS: 1. Follow through with your scheduled aftercare appointments. If unable to keep an appointment, please call to reschedule. 2. Take your medication only as prescribed. Medication should not be changed or stopped without the approval of your doctor. In the event of worsening symptoms or concerns about side effects, contact your doctor immediately. 3. Utilize new healthy coping skills, anger management skills, and stress management skills learned during your hospitalization. Journal feelings and process them with a support person. Identify stressors or situations that may result in relapse, deterioration or inappropriate behaviors and develop a plan to deal with those issues. 4. If your coping skills are ineffective and you are in crisis, contact your outpatient providers for direction. If unable to reach your providers, please call the [facility] CRISIS LINE AT , go to the [facility] walk-in center at [address] [place] [address], [address], [place], or go to the closest Emergency Room. 5. Avoid alcohol and un-prescribed drugs. 6. You have been provided with the Mental Health Advance Directives Pamphlet for your review. AFTERCARE APPOINTMENTS: * Please call your insurance company prior to your scheduled appointment to confirm your aftercare providers are covered. Take your insurance information to your appointments. WHO TO CALL AND WHEN: Medical Emergencies: For questions or emergencies related to your hospital stay, please contact the Inpatient Behavioral Health Unit at [phone]. A manager client service is on-call 23/03 for the Behavioral Health Unit for emergencies At any time you feel your situation is an emergency, you may also call 911 immediately. Addtl Faith Doctor Provider Instructions: utilize [facility] Crisis line Pending Studies at Discharge: No Stand-Alone Forms: My [facility] [employer], Smoking Cessation, Suicide Prevention Resources Medications and DC Order Prescriptions: New fluoxetine 20 mg Capsule 20 mg PO QAM 30 Days Qty: 30 RF: 0 No Action No Known Home Medications RF: 0 Discharge Orders: Discharge Order (Routine); Ordered 06/16/20 Ordered By: Amanda Sanchez Admission Data Admit Date/Time: 06/12/20 22:19 Attending Provider: Alejandra Leslie Admit Provider: Alejandra Leslie Primary Care Provider: [facility] Other Interventions: Discharge Summary Assessment (RN) Last Done: 06/16/20 10:08 PSY Interdisciplinary Discharge Planning Last Done: 06/16/20 10:08 Coding Level of Care Code 61188 D/C day mgmt > 30 min Diagnoses Suicidal ideations R45.851 Depression F32.9 Depression Type: unspecified Generalized anxiety disorder F41.1
== END 2020-06-16 11:58 | disposition home or self-care (01) | DRG 881 ==
LOC: ED 18:21 → 3S 22:19